=== PATIENT | female | born 1960 ===

== ENCOUNTER 2019-06-15 07:29 | Outpatient (CLI) | payer BC, SELFPAY ==
--- NOTE | ~2019-06-15 | US_ITS ---
EXAMINATION: US right upper quadrant DATE: 06/15/2019 08:57 INDICATION: Abnormal liver function tests. TECHNIQUE: Multiple grayscale and Doppler ultrasound images of the abdomen were obtained. COMPARISON: CT abdomen and pelvis 07/10/2017 FINDINGS: Abdominal aorta is normal in caliber. The visualized portions of the head and body of the p ancreas are normal. There is diffuse hepatic steatosis. No liver surface nodularity. There is normal flow in main portal vein. The gallbladder is absent. The common duct is normal and measures 4 mm. IMPRESSION: 1. Diffuse hepatic steatosis. Reviewed, dictated and finalized at location A. RAPHIC INFORMATION SYSTEMS DIRECTOR
== END 2019-06-15 07:30 ==
PROVIDERS: PCP Family Medicine; Visit Provider Physician Assistant
DX: R94.5 Abnormal results of liver function studies (principal); K76.0 Fatty (change of) liver, not elsewhere classified
CPT/HCPCS: 76705

== ENCOUNTER 2023-06-04 22:29 | Emergency (ER) | payer OTHER, SELFPAY ==
--- NOTE | ~2023-06-04 | CT_ITS ---
Noncontrast CT scan of the cervical spine Technique: Multiple contiguous axial [address] images of the cervical spine were obtained and rec onstructed in 2D sagittal and coronal planes on the acquisition scanner. Dose reduction technique was used on this scan by utilizing automated exposure control, adjustment of the mA and/or kV according to patient size. The dose-length product (DLP) was 439.56 mGy-cm. Clinical History: Pain Findings: No fractures or dislocations. There is right facet arthropathy at C4-C5.. The intervertebr al disc spaces are preserved. No prevertebral soft tissue swelling. Impression: No fracture or subluxation of the cervical spine. Reviewed, dictated and finalized at location . ET MANAGER Impression: No fracture or subluxation of the cervical spine.
--- NOTE | ~2023-06-04 | CT_ITS ---
Non-contrast Head CT History: Head injury Technique: Axial non-contrast imaging of the brain was performed. Dose reduction technique was used on this scan by utilizing automated exposure control and iterative reconstruction technique. The dose -length product (DLP) was 681.00 mGy-cm. Findings: There is no evidence of intracranial hemorrhage, mass lesion, or acute infarct. Brain par enchyma appears normal. The ventricles and subarachnoid spaces are normal in size. The calvarium ap pears normal. The visualized paranasal sinuses and mastoid air cells are clear. Impression: No significant abnormality seen. Reviewed, dictated and finalized at [facility]. RNET SECURITY SPECIALIST Impression: No significant abnormality seen.
--- NOTE | ~2023-06-04 | XR_ITS ---
Left elbow Technique: AP, oblique, and lateral views were obtained. Clinical History: Pain Findings: No acute fracture or dislocation is seen. Osseous alignment is anatomic. Joint spaces are p reserved. There is no displacement of the fat pads, and soft tissues are unremarkable. Impression: Unremarkable radiographs. Reviewed, dictated and finalized at location . AGE STUFFER Impression: Unremarkable radiographs.
[2023-06-04 22:31] VITALS: BP 167/95; PULSE 92; RESP 18; TEMP 36.3; O2SAT 99
--- NOTE | 2023-06-05 01:19 | PC.NURSE ---
MARTINEZ Ramos VORB 4mg morphine and 4mg zofran for pt pain and nausea.
[2023-06-05] MEDS: MORPHINE SULFATE (*CRX) 4 MG/ML INJ IV PUSH (01:20)
[2023-06-05] MEDS: ONDANSETRON INJ 4 MG/2 ML VIAL IV PUSH (01:20)
--- NOTE | 2023-06-05 01:23 | ED.GENADULT ---
HPI - General Adult General Chief complaint: Fall Stated complaint: head injry Time Seen by Provider: 06/04/23 23:52 Source: patient Mode of arrival: EMS Limitations: no limitations History of Present Illness HPI narrative: This is a 62-year-old female who presents to the ED via EMS for chief complaint of a fall that occurred just prior to arrival. Patient was walking outside after work and slipped on ice in the parking lot. She reports falling backwards and bounced her head on ground. She reports injury to the left elbow as well. Denies LOC, numbness, weakness or any further sites of pain or injury. Related Data Home Medications Medication Instructions Recorded Confirmed aspirin 81 mg tablet,delayed 81 mg PO DAILY 04/23/19 12/29/20 release (Adult Aspirin Regimen) Allergies Allergy/AdvReac Type Severity Reaction Status Date / Time Sulfa (Sulfonamide Allergy Unknown Anaphylactic Verified 12/29/20 16:24 Antibiotics) Shock shellfish derived AdvReac Severe Anaphylactic Verified 12/29/20 16:24 Shock Review of Systems Review of Systems: All systems as dictated in HPI [facility] Past Medical History Medical History Elevated liver enzymes External hemorrhoids s/p infrared coagulation Type 2 diabetes mellitus with hyperglycemia Type 2 diabetes mellitus without complication, without long-term current use of insulin Surgical History Surgical History S/P cholecystectomy Family History Family History Other Family history of cardiovascular disease Family history of lung cancer Hypertension Social History Social History Smoking status: Former smoker Second hand tobacco smoke exposure: No Smoking end date: 04/17/10 Alcohol intake: never Substance use: never Substance use type: does not use Living arrangements: with family Occupation/Education: occupation Gender identity (if verbalized by the patient): Female Sexual Orientation (if Verbalized by the Patient): Straight or Heterosexual Exam Narrative: GENERAL: Well-appearing, well-nourished, and in no acute distress. HEAD: Normocephalic, atraumatic. EYES: PERRLA and EOMI. ENT: Nares clear, no rhinorrhea or epistaxis. Mucous membranes moist. Oropharynx without tonsillar hypertrophy exudate or other lesions. NECK: Supple. No adenopathy or masses. CHEST: No respiratory distress. Clear to auscultation. No wheezes rales or rhonchi HEART: Regular rate and rhythm. No murmur heard. Normal peripheral pulses. ABDOMEN: Soft, nontender, nondistended, normal active bowel sounds. MSK: Normal range of motion. No edema. Full range of motion of the upper extremities bilaterally. No deformity, crepitus, bruising. SKIN: 1.5 cm laceration to the posterior left elbow. No active bleeding. NEURO: Alert and oriented x3. No focal deficits. PSYCH: Normal mood and affect. Course Vital Signs Vital signs: Vital Signs Temperature 97.3 F L 06/04/23 22:31 Pulse Rate 92 06/04/23 22:31 Respiratory Rate 18 06/04/23 22:31 Blood Pressure 167/95 H 06/04/23 22:31 Pulse Oximetry 99 06/04/23 22:31 Oxygen Delivery Room Air 06/04/23 22:31 Temperature 97.3 F L 06/04/23 22:31 Pulse Rate 71 06/05/23 02:06 Respiratory Rate 12 06/05/23 02:06 Blood Pressure 128/77 06/05/23 02:06 Pulse Oximetry 96 06/05/23 02:06 Oxygen Delivery Room Air 06/04/23 22:31 Procedures Laceration Laceration 1: Date: 06/05/23 Time: 01:49 Site: upper extremity Side (If applicable): left Size (cm): 1.5 Description: linear Depth: simple, single layer Local Anesthetic: lidocaine 1% and with epi Amount of anesthesia used (mL): 2 Pre-repair: wound explored, ir
[2023-06-05 02:06] VITALS: BP 128/77; PULSE 71; RESP 12; O2SAT 96
== END 2023-06-05 03:32 | disposition home or self-care (01) ==
PROVIDERS: Emergency Provider Physician Assistant; PCP Family Medicine
DX: S51.012A Laceration without foreign body of left elbow, initial encounter (principal); S09.90XA Unspecified injury of head, initial encounter; E11.9 Type 2 diabetes mellitus without complications; Z90.49 Acquired absence of other specified parts of digestive tract; Z87.891 Personal history of nicotine dependence; Z79.82 Long term (current) use of aspirin; W00.0XXA Fall on same level due to ice and snow, initial encounter
CPT/HCPCS: 12001; 70450; 72125; 73080; 96374; 96375; 99284; A4565; J2270; J2405